=== PATIENT | male | born 1960 | race Caucasian/White ===

== ENCOUNTER 2018-08-30 09:13 | Emergency (ER) | payer BC ==
--- OUTSIDE RECORDS SUMMARY | 2018-08-30 09:39 | XMS REPORT ---
:1960 External Reference #:[id number] Author Organization [facility] Address [address], [address] [place] [address] Phone [phone] Care Team Providers Name Role Phone Elisa Lobo MD Care Team Information Sld Teacher Unavailable Elisa Lobo MD Primary Care Physician Unavailable Payers Type Date Identification Numbers Payment Provider Subscriber Commercial Policy Number: [id number] Jacklyn Mark Webber PayID: [id number] [address] [address] [place] [address] Problems Date Description Provider Status Onset: 01/13/2017 Adult health examination Elisa Lobo M.D. Active Onset: 01/13/2017 Edema Elisa Lobo M.D. Active Onset: 01/13/2017 Essential hypertension Elisa Lobo M.D. Active Onset: 01/13/2017 Rheumatoid arthritis Elisa Lobo M.D. Active Onset: 01/13/2017 Taking medication Elisa Lobo M.D. Active Onset: 01/13/2017 Recurrent major depression in full Elisa Lobo M.D. Active remission Onset: 01/13/2017 Abnormal glucose level Elisa Lobo M.D. Active Onset: 01/13/2017 Immunization Elisa Lobo M.D. Active Onset: 01/13/2017 Encounter for screening for Elisa Lobo M.D. Active nutritional disorder Onset: 01/13/2017 Gout Elisa Lobo M.D. Active Onset: 01/13/2017 Screening for malignant neoplasm of Elisa Lobo M.D. Active prostate Onset: 01/13/2017 Screening for malignant neoplasm of Elisa Lobo M.D. Active colon Onset: 01/13/2017 Hyperlipidemia screening Elisa Lobo M.D. Active Onset: 09/04/2017 Wrist joint pain Elisa Lobo M.D. 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 Active Onset: 11/06/2017 Pain in limb Elisa Lobo M.D. Active Onset: 06/14/2018 Lymphadenopathy Elisa Lobo M.D. 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 ETOH Use About 3 beers per day. Smoking Patient has never smoked Recreational Drug Use Denies Drug Use Daily Caffeine Minimal Caffeine intake. Allergies, Adverse Reactions, Alerts Date Description Reaction Status Severity Comments 01/13/2017 NKDA active Medications Medication Date Status Form Strength Qnty SIG Indications Ordering Provider Vitamin D3 06/14 Active Capsules 5000Unit 1 a day Yamil, Patti Pérez.DViktoriya Amlodipine 02/05 Active Tablets 2.5mg 90tab 1 tab by mouth I10 Yamil, Bes s every day AndJosh pruitt Indomethacin 11/19 Active Capsules 25mg 60cap take 1 tablet Yamil, s by mouth 3 Andras, times daily as M.D. needed for pain Allopurinol 11/06 Active Tablets 100mg 90tab 1 by mouth M10.9 Yamil, s every day AndJosh pruitt Folic Acid 11/06 Active Tablets 1mg 90tab Take 1 Tablet E72.10 Yamil, s By Mouth Every Andras, Day M.D. Fluoxetine HCL 07/24 Active Capsules 20mg 90cap Take 1 Capsule Yamil s By Mouth Every Andras, Day M.D. Naproxen 01/13 Active Tablets 500mg 60tab take [address] s daily when Andras, needed for M.D. arthritis flare up Vitamin B12 Active Tablets 3000mcg 1 by mouth Unknown ER once a day Enalapril Active Tablets 20mg 90tab take 1 tablet Yamil, Male s by mouth every Andras, day M.D. Prednisone Active Tablets 5mg Take 1 Tablet Unknown By Mouth Twice A Day Vitamin D High 06/14 Hx Capsules 2000Unit 1 by mouth Yamil, Potency every day Andras, - M.D. 06/14 Ibuprofen 200 06/14 Hx Tablets 200mg 90tab 1-2 tabs by Yamil, s mouth three Andras, - times a day as M.D. 07/30 needed Vitamin D3 02/05 Hx Capsules 5000Unit 90cap 1 by mouth Yamil, Ultra s every day Andras, - M.D. 06/14 Voltaren 02/05 Hx Gel 1% 200gm 2 gm to be applied on Andras, - right hand M.D. 06/14 transdermally four times a day Vitamin D 11/06 Hx Capsules [id number] 4caps 1 tab by mouth E55.9 Yamil, (Ergocalciferol /2016 once a week Andras, ) - for 4 weeks M.D. 02/05 Voltaren 11/06 Hx Gel 1% 300gm 2 gm to be M79.641 Yamil applied on Andras, - right hand M.D. 06/14 transdermally four times a day Voltaren 1020 Hx Gel 1% 300gm 2 gm to be M25.532 applied on Andras, - left wrist M.D. 09/18 transdermally four times a day Fluoxetine HCL Hx Tablets 20mg 30tab take 1 tablet Yamil, s by mouth once Andras, - daily for M.D. 07/24 Sulfasalazine Hx Tablets 500mg 2 tabs by Unknown /0000 mouth twice a - day 06/16 Humira 00/ Hx PSKT 10mg/0.1M Unknown /0000 L - 07/30 Humira Pen Hx PNKT 40mg/0.8M 80mg every Unknown /0000 L other week - 07/30 Immunizations CPT Code Status Date Vaccine Lot # [id number] Given 01/13/2017 Tdap injection [id number] Vital Signs Date Vital Result Comment 08/27/2018 BP Systolic 154 mmHg BP Diastolic 80 mmHg Body Temperature 97.3 F Heart Rate 70 /min Respiratory Rate 18 /min Weight 259.12 lb O2 % BldC Oximetry 97 % Pain Level 0 08/05/2018 BP Systolic 123 mmHg BP Diastolic 79 mmHg Body Temperature 96.2 F Heart Rate 78 /min Weight 260.38 lb O2 % BldC Oximetry 99 % Pain Level 1 both feet 07/30/2018 BP Systolic 126 mmHg BP Diastolic 80 mmHg Body Temperature 97.3 F Heart Rate 73 /min Weight 257.50 lb O2 % BldC Oximetry 97 % Pain Level 4 both feet. 07/21/2018 BP Systolic Sitting Right Arm 128 mmHg BP Diastolic Sitting Right Arm 82 mmHg Body Temperature 96.6 F Heart Rate 66 /min Respiratory Rate 18 /min Height 69 inches 5'9" Weight 256.00 lb BMI (Body Mass Index) 37.8 kg/m2 BSA (Body Surface Area) 2.29 m2 [place] body weight in kilograms 73 O2 % BldC Oximetry 97 % Ra 06/16/2018 BP Systolic 131 mmHg BP Diastolic 85 mmHg Body Temperature 98.5 F Heart Rate 74 /min Respiratory Rate 18 /min Height 69 inches 5'9" Weight 260.00 lb BMI (Body Mass Index) 38.4 kg/m2 BSA (Body Surface Area) 2.31 m2 [place] body weight in kilograms 73 O2 % BldC Oximetry 97 % Ra Pain Level 0 06/14/2018 BP Systolic 168 mmHg BP Diastolic 97 mmHg Body Temperature 98.1 F Heart Rate 74 /min Respiratory Rate 18 /min Height 69 inches 5'9" Weight 258.00 lb BMI (Body Mass Index) 38.1 kg/m2 BSA (Body Surface Area) 2.30 m2 [place] body weight in kilograms 73 O2 % BldC Oximetry 98 % 02/05/2018 BP Systolic 176 mmHg recheck 143/103 BP Diastolic 100 mmHg recheck 143/103 Heart Rate 87 /min Respiratory Rate 14 /min Height 69 inches 5'9" Weight 258.12 lb BMI (Body Mass Index) 38.1 kg/m2 BSA (Body Surface Area) 2.30 m2 [place] body weight in kilograms 73 O2 % BldC Oximetry 98 % 11/06/2017 BP Systolic Sitting Left Arm 147 mmHg BP Diastolic Sitting Left Arm 87 mmHg Heart Rate 78 /min Respiratory Rate 16 /min Height 69 inches 5'9" Weight 246.00 lb BMI (Body Mass Index) 36.3 kg/m2 BSA (Body Surface Area) 2.26 m2 [place] body weight in kilograms 73 09/04/2017 BP Systolic Sitting Left Arm 153 mmHg BP Diastolic Sitting Left Arm 93 mmHg Heart Rate 81 /min Height 69 inches 5'9" Weight 238.00 lb BMI (Body Mass Index) 35.1 kg/m2 BSA (Body Surface Area) 2.22 m2 [place] body weight in kilograms 73 01/13/2017 BP Systolic 168 mmHg BP Diastolic 82 mmHg Body Temperature 98.5 F Heart Rate 83 /min Respiratory Rate 16 /min Height 69 inches 5'9" Weight 225.25 lb BMI (Body Mass Index) 33.3 kg/m2 BSA (Body Surface Area) 2.17 m2 [place] body weight in kilograms 73 O2 % BldC Oximetry 97 % Results Test Date Test Result H/L Range Note Xray 08/19/2018 Ultrasound Guided Biopsy <pending> Protime 08/06/2018 Protime 13.8 seconds 12.0-14.4 1 Inr 1.1 0.9-1.1 1, 2 Laboratory test finding 08/06/2018 Act Partial Thrombo 33.8 seconds 23.4- 35.0 1 Time Laboratory test finding 07/30/2018 Afp Tumor Marker,Serum <pending> HCG,Beta Subunit,QN,(Serial) <pending> Comprehensive Metabolic Panel 07/30/2018 Glucose 104 mg/dL 74-106 1 BUN 14 mg/dL 7-18 1 Creatinine 1.0 mg/dL 0.6-1.3 1 Glom Filtration Rate, Estimate >60 mL/min >60 1 If >60 mL/min >60 1, 3 BUN/Creat 14.0 ratio 1 Sodium 133 mmol/L Low 136-145 1 Potassium 4.6 mmol/L 3.5-5.1 1 Chloride 100 mmol/L 98-107 1 Carbon Dioxide 26 mmol/L 21-32 1 Anion Gap 7 mEq/L Low 8-16 1 Calcium 9.1 mg/dL 8.5-10.1 1 Total Protein 8.9 g/dL High 6.4-8.2 1 Albumin 3.6 g/dL 3.4-5.0 1 Globulin 5.3 g/dL High 1.9-4.3 1 Alb/Glob 0.7 ratio 1 Bilirubin,Total 0.6 mg/dL 0.2-1.0 1 Sgot/Ast 38 U/L High 15-37 1 SGPT/Alt 43 U/L 12-78 1 Alkaline Phosphatase 76 U/L 45-117 1 Laboratory test finding 07/30/2018 LDH 160 U/L 87-241 1 CBC W/Automated Diff 07/30/2018 White Blood Count 3.6 K/uL 3.4-10.5 1 Red Blood Count 4.73 M/uL 4.20-5.80 1 Hemoglobin 14.1 gm/dL 12.8-17.0 1 Hematocrit 41.3 % 38.0-48.0 1 Mean Cell Volume 87.3 fl 80.0-96.0 1 Mean Corpuscular HGB 29.8 pg 27.0-33.0 1 Mean Corpuscular HGB Conc 34.1 g/dL 31.7-36.0 1 Platelet Count 233 K/uL 155-360 1 Red Cell Distri Width SD 41.2 fl 36-51 1 Red Cell Distri Width %CV 13.2 % 11.6-15.8 1 Mean Platelet Volume 9.2 fL 6.6-10.6 1 Neut% 60.1 % 33.0-73.0 1 Lymph % 23.9 % 20.0-42.0 1 [place] % 8.7 % 0.0-10.0 1 Eo% 5.6 % 0.0-6.6 1 Bas% 1.7 % High 0.0-1.1 1 Neut# 2.13 K/uL 1.8-7.0 1 Lymph # 0.85 K/uL Low 1.0-4.0 1 [place] # 0.31 K/uL 0.0-0.8 1 Eos # 0.20 K/uL 0.0-0.5 1 Baso # 0.06 K/uL 0.0-0.1 1 Rheumatoid Panel ([facility]) 07/30/2018 Sedimentation Rate 60 mm/hr High 0-20 1, 4 Uric Acid 6.5 mg/dL 3.5-7.2 1 Rheumatoid Factor Screen 104.0 IU/mL High 0.0-15.0 1 C-Reactive Protein,Quant 34.8 mg/L High <3.0 1 Lyme AB/Western Blot 07/30/2018 Lyme Total AB/Reflex < 0.91 ISR 0.00- 0.90 1, 5 Reflex To WB Lyme Disease Antibody,QT,Igm < 0.80 index 0.00-0.79 1, 6 Antinuclear Antibodies, Ifa 07/30/2018 Antinuclear Antibodies, Ifa Positive . 1, 7 Homogeneous Pattern 1:80 . 1 Note (SEE NOTE) 1, 8 Systemic Lupus Erythem. Profil 07/30/2018 Ra Latex Turbid. 78.0 IU/mL High 0.0-13.9 1 Anti-Dna Antibody ([place]) <1 IU/mL 0-9 1, 9 SM Antibody <0.2 AI 0.0-0.9 1 CUT OFF MAN Antibody 0.2 AI 0.0-0.9 1 Sjogrens Antibodies (Ssa) <0.2 AI 0.0-0.9 1 Antichromatin Antibodies <0.2 AI 0.0-0.9 1 Sjogrens Antibodies (SSB) <0.2 AI 0.0-0.9 1 Laboratory test finding 07/30/2018 Afp Tumor Marker,Serum 4.6 ng/mL 0.0- 8.3 1, 10 HCG,Beta Subunit,QN,(Serial) <1 mIU/mL 0-3 1, 11 Xray 07/15/2018 Foot Complete 4 Views <pending> Foot, Complete, Left <pending> CT, Abdomen & Pelvis,W & W/O Contrast <pending> CBS W/Automated Diff 07/07/2018 White Blood Count 4.3 K/uL 3.4-10.5 12 Red Blood Count 4.57 M/uL 4.20-5.80 12 Hemoglobin 13.9 gm/dL 12.8-17.0 12 Hematocrit 40.4 % 38.0-48.0 12 Mean Cell Volume 88.4 fl 80.0-96.0 12 Mean Corpuscular HGB 30.4 pg 27.0-33.0 12 Mean Corpuscular HGB Conc 34.4 g/dL 31.7-36.0 12 Platelet Count 237 K/uL 155-360 12 Red Cell Distri Width SD 41.3 fl 36-51 12 Red Cell Distri Width %CV 13.0 % 11.6-15.8 12 Mean Platelet Volume 8.8 fL 6.6-10.6 12 Neut% 63.9 % 33.0-73.0 12 Lymph % 25.6 % 20.0-42.0 12 [place] % 7.9 % 0.0-10.0 12 Eo% 1.9 % 0.0-6.6 12 Bas% 0.7 % 0.0-1.1 12 Neut# 2.75 K/uL 1.8-7.0 12 Lymph # 1.10 K/uL 1.0-4.0 12 [place] # 0.34 K/uL 0.0-0.8 12 Eos # 0.08 K/uL 0.0-0.5 12 Baso # 0.03 K/uL 0.0-0.1 12 Basic Metabolic Panel 07/07/2018 Glucose 108 mg/dL High 74-106 12 BUN 13 mg/dL 7-18 12 Creatinine 1.0 mg/dL 0.6-1.3 12 Glom Filtration Rate, Estimate >60 mL/min >60 12 If >60 mL/min >60 12, 13 BUN/Creat 13.0 ratio 12 Sodium 137 mmol/L 136-145 12 Potassium 4.5 mmol/L 3.5-5.1 12 Chloride 103 mmol/L 98-107 12 Carbon Dioxide 29 mmol/L 21-32 12 Anion Gap 5 mEq/L Low 8-16 12 Calcium 9.0 mg/dL 8.5-10.1 12 Laboratory test finding 07/07/2018 Uric Acid <pending> 12 Vitamin D,25-Hydroxy <pending> 12 Liver Function Tests 07/07/2018 Total Protein 8.2 g/dL 6.4-8.2 12 Albumin 3.4 g/dL 3.4-5.0 12 Globulin 4.8 g/dL High 1.9-4.3 12 Alb/Glob 0.7 ratio 12 Bilirubin,Total 0.6 mg/dL 0.2-1.0 12 Bilirubin,Direct 0.1 mg/dL 0.0-0.2 12 Bilirubin,Indirect 0.5 mg/dL 0.0-0.9 12 Sgot/Ast 28 U/L 15-37 12 SGPT/Alt 36 U/L 12-78 12 Alkaline Phosphatase 70 U/L 45-117 12 Protime 07/07/2018 Protime 13.5 seconds 12.0-14.4 12 Inr 1.0 0.9-1.1 12, 14 Anticoagulant Therapy? NO 12 Act Partial Thrombo 07/07/2018 Act Partial Thrombo 30.6 seconds 23.4- 35.0 12 Time Time Anticoagulant Therapy? NO 12 Homocyst(E)Ine, P/S 01/29/2018 Homocyst(e)ine, P/S 14.1 umol/L 0.0-15.0 15, 16 Comprehensive Metabolic 01/29/2018 Glucose 97 mg/dL 74-106 15 Panel BUN 12 mg/dL 7-18 15 Creatinine 1.1 mg/dL 0.6-1.3 15 Glom Filtration Rate, Estimate >60 mL/min >60 15 If >60 mL/min >60 15, 17 BUN/Creat 10.9 ratio 15 Sodium 139 mmol/L 136-145 15 Potassium 4.5 mmol/L 3.5-5.1 15 Chloride 103 mmol/L 98-107 15 Carbon Dioxide 30 mmol/L 21-32 15 Anion Gap 6 mEq/L Low 8-16 15 Calcium 9.1 mg/dL 8.5-10.1 15 Total Protein 8.1 g/dL 6.4-8.2 15 Albumin 3.6 g/dL 3.4-5.0 15 Globulin 4.5 g/dL High 1.9-4.3 15 Alb/Glob 0.8 ratio 15 Bilirubin,Total 0.9 mg/dL 0.2-1.0 15 Sgot/Ast 25 U/L 15-37 15 SGPT/Alt 19 U/L 12-78 15 Alkaline Phosphatase 71 U/L 45-117 15 CBS W/Automated Diff 01/29/2018 White Blood Count 5.2 K/uL 3.4-10.5 15 Red Blood Count 4.79 M/uL 4.20-5.80 15 Hemoglobin 14.5 gm/dL 12.8-17.0 15 Hematocrit 42.8 % 38.0-48.0 15 Mean Cell Volume 89.4 fl 80.0-96.0 15 Mean Corpuscular HGB 30.3 pg 27.0-33.0 15 Mean Corpuscular HGB Conc 33.9 g/dL 31.7-36.0 15 Platelet Count 250 K/uL 155-360 15 Red Cell Distri Width SD 45.8 fl 36-51 15 Red Cell Distri Width %CV 14.5 % 11.6-15.8 15 Mean Platelet Volume 9.6 fL 6.6-10.6 15 Neut% 62.9 % 33.0-73.0 15 Lymph % 21.4 % 20.0-42.0 15 [place] % 11.3 % High 0.0-10.0 15 Eo% 3.4 % 0.0-6.6 15 Bas% 1.0 % 0.0-1.1 15 Neut# 3.30 K/uL 1.8-7.0 15 Lymph # 1.12 K/uL 1.0-4.0 15 [place] # 0.59 K/uL 0.0-0.8 15 Eos # 0.18 K/uL 0.0-0.5 15 Baso # 0.05 K/uL 0.0-0.1 15 Glycohemoglobin A1c 01/29/2018 Glycohemoglobin (A1c) 5.5 % 4.2-6.3 15, 18 eAG 111 mg/dL 15 Laboratory test finding 01/29/2018 Uric Acid 7.0 mg/dL 3.5-7.2 15 Vitamin D,25-Hydroxy 36.3 ng/mL 30.0-100.0 15, 19 Occult Blood,Stool 11/05/2017 Stool Occult Blood-Single NEGATIVE Negative 20, 21 Spec Occult Blood,Stool 11/04/2017 Stool Occult Blood-Single NEGATIVE Negative 20, 22 Spec Occult Blood,Stool 10/29/2017 Stool Occult Blood-Single NEGATIVE Negative 23, 24 Spec Magnesium 10/27/2017 Magnesium 2.1 mg/dL 1.8-2.4 25 Reflex add FT3? Y 25 Reflex add FT4? Y 25 CBS W/Automated Diff 10/27/2017 White Blood Count 5.0 K/uL 3.4-10.5 25 Red Blood Count 4.59 M/uL 4.20-5.80 25 Hemoglobin 13.6 gm/dL 12.8-17.0 25 Hematocrit 40.6 % 38.0-48.0 25 Mean Cell Volume 88.5 fl 80.0-96.0 25 Mean Corpuscular HGB 29.6 pg 27.0-33.0 25 Mean Corpuscular HGB Conc 33.5 g/dL 31.7-36.0 25 Platelet Count 247 K/uL 155-360 25 Red Cell Distri Width SD 43.2 fl 36-51 25 Red Cell Distri Width %CV 13.7 % 11.6-15.8 25 Mean Platelet Volume 8.5 fL 6.6-10.6 25 Neut% 70.6 % 33.0-73.0 25 Lymph % 17.1 % Low 20.0-42.0 25 [place] % 7.9 % 0.0-10.0 25 Eo% 3.6 % 0.0-6.6 25 Bas% 0.8 % 0.0-1.1 25 Neut# 3.50 K/uL 1.8-7.0 25 Lymph # 0.85 K/uL Low 1.0-4.0 25 [place] # 0.39 K/uL 0.0-0.8 25 Eos # 0.18 K/uL 0.0-0.5 25 Baso # 0.04 K/uL 0.0-0.1 25 Comprehensive Metabolic Panel 10/27/2017 Glucose 110 mg/dL High 74-106 25 BUN 14 mg/dL 7-18 25 Creatinine 1.0 mg/dL 0.6-1.3 25 Glom Filtration Rate, Estimate >60 mL/min >60 25 If >60 mL/min >60 25, 26 BUN/Creat 14.0 ratio 25 Sodium 139 mmol/L 136-145 25 Potassium 4.0 mmol/L 3.5-5.1 25 Chloride 104 mmol/L 98-107 25 Carbon Dioxide 26 mmol/L 21-32 25 Anion Gap 9 mEq/L 8-16 25 Calcium 9.1 mg/dL 8.5-10.1 25 Total Protein 8.2 g/dL 6.4-8.2 25 Albumin 3.4 g/dL 3.4-5.0 25 Globulin 4.8 g/dL High 1.9-4.3 25 Alb/Glob 0.7 ratio 25 Bilirubin,Total 0.8 mg/dL 0.2-1.0 25 Sgot/Ast 28 U/L 15-37 25 SGPT/Alt 24 U/L 12-78 25 Alkaline Phosphatase 74 U/L 45-117 25 Reflex add FT3? Y 25 Reflex add FT4? Y 25 Ua RFX Micro & Culture II 10/27/2017 Urine Color YELLOW Yellow 25 Urine Clarity CLEAR Clear 25 Urine Glucose - Dipstick NEGATIVE mg/dL Negative 25 Urine Bilirubin - Dipstick NEGATIVE Negative 25 Urine Ketone NEGATIVE mg/dL Negative 25 Urine Specific [place] 1.020 1.010-1.030 25 Urine Blood NEGATIVE Negative 25 Urine PH 6.0 Low 6.5-7.5 25 Urine Protein - Dipstick NEGATIVE mg/dL Negative 25 Urine Urobilinogen - Dipstick 0.2 E.U./dL 0.2-1.0 25 Urine Nitrite - Dipstick NEGATIVE Negative 25 Urine Leuk Esterase NEGATIVE Negative 25 Source: URINE, CLEAN CAT <SEE NOTE> 25, 27 Homocyst(E)Ine, P/S 10/27/2017 Homocyst(e)ine, P/S 15.9 umol/L High 0.0- 15.0 25, 28 TSH Reflex FT4 And/Or 10/27/2017 Thyroid Stim Hormone 2.30 uIU/mL 0.30- 4.20 25 FT3 Reflex add FT3? Y 25 Reflex add FT4? Y 25 Glycohemoglobin A1c 10/27/2017 Glycohemoglobin (A1c) 5.8 % 4.2-6.3 25, 29 eAG 120 mg/dL 25 Lupus Anticoagulant Reflex 10/27/2017 PTT-LA 41.6 sec 0.0-51.9 25 DRVVT 32.6 sec 0.0-47.0 25 Note: Comment: . 25, 30 C-Reactive Protein,Quant 10/27/2017 C-Reactive Protein,Quant 17.0 mg/L High <3.0 25 Reflex add FT3? Y 25 Reflex add FT4? Y 25 Lyme AB/Western Blot 10/27/2017 Lyme Total AB/Reflex < 0.91 ISR 0.00- 0.90 25, 31 Reflex To WB Lyme Disease Antibody,QT,Igm < 0.80 index 0.00-0.79 25, 32 Rheumatoid Factor 10/27/2017 Rheumatoid Factor 121.0 IU/mL High 0.0-15.0 25 Screen Screen Reflex add FT3? Y 25 Reflex add FT4? Y 25 Rheumatoid Panel ([facility]) 10/27/2017 Sedimentation Rate 53 mm/hr High 0-20 25, 33 Anti-Nuclear Antibodies Direct Negative AU/mL Negative 25 Laboratory test 10/27/2017 Vitamin D,25-Hydroxy 7.7 ng/mL Low 30.0-100.0 25, 34 finding Triglycerides 10/27/2017 Triglycerides 105 mg/dL <150 25, 35 Reflex add FT3? Y 25 Reflex add FT4? Y 25 Direct LDL Cholesterol 10/27/2017 LDL Chol. (Direct) 119 mg/dL High 0-99 25 HDL Cholesterol 10/27/2017 HDL Cholesterol 79 mg/dL >40 25, 36 Reflex add FT3? Y 25 Reflex add FT4? Y 25 Prostate Specific Antigen 10/27/2017 PSA ([place]) 1.18 ng/mL < 4.0 25, 37 Reflex add FT3? Y 25 Reflex add FT4? Y 25 Uric Acid 10/27/2017 Uric Acid 8.0 mg/dL High 3.5-7.2 25 Reflex add FT3? Y 25 Reflex add FT4? Y 25 1 R59.9 2 THERAPEUTIC INR RANGE: 2.0 - 3.0 DVT, Pulmonary embolus, prophylaxis against venous thrombosis or systemic embolization in high risk patients. 2.5 - 3.5 Mechanical heart valves 3 Note: Persistent reduction for 3 months or more in an eGFR <60 mL/min/1.73 m2 defines CKD. Patients with eGFR values >/=60 mL/min/1.73 m2 may also have CKD if evidence of persistent proteinuria is present. The original MDRD equation for estimated GFR is not valid for patients less than 18 years of age. Additional information may be found at www.kdoqi.org. 4 Method: Sediplast Modified Westergren 5 Negative <0.91 Equivocal 0.91 - 1.09 Positive >1.09 6 Negative <0.80 Equivocal 0.80 - 1.19 Positive >1.19 IgM levels may peak at 3-6 weeks post infection, then gradually decline. Performed at: RN - [facility] [address] [id number] Form Coverer: Nydia Skinner MD, Phone: [phone] 7 Negative <1:80 Borderline 1:80 Positive >1:80 8 A positive SOLEDAD result may occur in healthy individuals (low titer) or be associated with a variety of diseases. See interpretation chart which is not all inclusive: Pattern Antigen Detected Suggested Disease Association Homogeneous DNA(ds,ss), SLE - High titers Nucleosomes, Histones Drug-induced SLE Speckled Sm, CUT OFF MAN, SCL-70, SLE,MCTD,PSS (diffuse form), SS-A/SS-B Sjogrens Nucleolar SCL-70, PM-1/SCL High titers Scleroderma, PM/DM Centromere Centromere PSS (limited form) w/Crest syndrome variable Nuclear Dot [id number] Primary Biliary Cirrhosis Nuclear GP210, Primary Biliary Cirrhosis Membrane jazmine A,B,C 9 Negative <5 Equivocal 5 - 9 Positive >9 10 Normal values apply only to males and to non females. These results are not interpretable for females. Asim ECLIA methodology. Values obtained with different assay methods or kits cannot be used interchangeably. Results cannot be interpreted as absolute evidence of the presence or absence of malignant disease. 11 Asim ECLIA methodology 12 R21 Z79.899 13 Note: Persistent reduction for 3 months or more in an eGFR <60 mL/min/1.73 m2 defines CKD. Patients with eGFR values >/=60 mL/min/1.73 m2 may also have CKD if evidence of persistent proteinuria is present. The original MDRD equation for estimated GFR is not valid for patients less than 18 years of age. Additional information may be found at www.kdoqi.org. 14 THERAPEUTIC INR RANGE: 2.0 - 3.0 DVT, Pulmonary embolus, prophylaxis against venous thrombosis or systemic embolization in high risk patients. 2.5 - 3.5 Mechanical heart valves 15 E72.10 Z79.899 R73.09 M10.9 E55.9 16 Performed at: - [facility] [address] [id number] Form Coverer: Nydia Skinner MD, Phone: [phone] 17 Note: Persistent reduction for 3 months or more in an eGFR <60 mL/min/1.73 m2 defines CKD. Patients with eGFR values >/=60 mL/min/1.73 m2 may also have CKD if evidence of persistent proteinuria is present. The original MDRD equation for estimated GFR is not valid for patients less than 18 years of age. Additional information may be found at www.kdoqi.org. 18 Elevated levels of HbA1c suggest the need for more aggressive treatment of glycemia. The [place] Diabetes Association recommends that a primary goal of therapy should be a HbA1c of <7% and that physicians should re-evaluate the treatment regimen in patients with HbA1c values consistently >8%. 19 Vitamin D deficiency has been defined by the [place] [employer] and an Endocrine Society practice guideline as a level of serum 25-OH vitamin D less than 20 ng/mL (1,2). The Endocrine Society went on to further define vitamin D insufficiency as a level between 21 and 29 ng/mL (2). 1. IOM ([place] [employer]). 2010. Dietary reference intakes for calcium and D. [place]: The National Academies Press. 2. iRcky MF, Gulshan CALDERON, Pako FERNANDEZ, et al. Evaluation, treatment, and prevention of vitamin D deficiency: an Endocrine Society clinical practice guideline. JCEM. 2010; 96(7):1911-30. Performed at: - [facility] [id number] Form Coverer: Nydia Skinner MD, Phone: [phone] 20 Z12.11 21 Method: Alexandra Gary Hemoccult Card 22 Method: Alexandra Gary Hemoccult Card 23 Z13.21,M25.532,Z13.220 24 Method: Alexandra Gary Hemoccult Card 25 I10,Z79.899,F33.42,R73.09,M10.9,Z12.5,Z12.11, 26 Note: Persistent reduction for 3 months or more in an eGFR <60 mL/min/1.73 m2 defines CKD. Patients with eGFR values >/=60 mL/min/1.73 m2 may also have CKD if evidence of persistent proteinuria is present. The original MDRD equation for estimated GFR is not valid for patients less than 18 years of age. Additional information may be found at www.kdoqi.org. 27 URINE, CLEAN CATCH 28 Performed at: [facility] [id number] Form Coverer: Nydia Skinner MD, Phone: [phone] 29 Elevated levels of HbA1c suggest the need for more aggressive treatment of glycemia. The [place] Diabetes Association recommends that a primary goal of therapy should be a HbA1c of <7% and that physicians should re-evaluate the treatment regimen in patients with HbA1c values consistently >8%. 30 No lupus anticoagulant was detected. 31 Negative <0.91 Equivocal 0.91 - 1.09 Positive >1.09 32 Negative <0.80 Equivocal 0.80 - 1.19 Positive >1.19 IgM levels may peak at 3-6 weeks post infection, then gradually decline. Performed at: - [facility] [id number] Form Coverer: Pablo Bedolla MD, Phone: [phone] Performed at: RN - [facility] [address] [id number] Form Coverer: Nydia Skinner MD, Phone: [phone] Method: Sediplast Modified Westergren 34 Vitamin D deficiency has been defined by the [place] [employer] and an Endocrine Society practice guideline as a level of serum 25-OH vitamin D less than 20 ng/mL (1,2). The Endocrine Society went on to further define vitamin D insufficiency as a level between 21 and 29 ng/mL (2). 1. IOM ([place] [employer]). 2010. Dietary reference intakes for calcium and D. [place]: The National Academies Press. 2. Ricky MF, Gulshan CALDERON, Pako FERNANDEZ, et al. Evaluation, treatment, and prevention of vitamin D deficiency: an Endocrine Society clinical practice guideline. JCEM. 2010; 96(7):1911-30. Performed at: RN - [facility] [address] [id number] Form Coverer: Nydia Skinner MD, Phone: [phone] Reference Guidelines*: Normal: ............. < 150 mg/dL Borderline High: .... 150-199 mg/dL High: ............... 200-499 mg/dL Very High: .......... > 500 mg/dL * Source: National Cholesterol Education Program (NCEP) 36 Reference Guidelines*: Low HDL: ..... < 40 mg/dL Normal: ..... 40-60 mg/dL Desirable: ... > 60 mg/dL *The National Cholesterol Education Program(NCEP) 37 THIS ASSAY IS NOT INTENDED A CANCER SCREENING TEST The concentration of PSA in a given specimen, determined with assays from different manufacturers, can vary due to differences in assay methods and reagent specificity. Values obtained from different assay methods cannot be used interchangeably. Method: Siemens Futurlink [place] Chemiluminescent immunoassay. Procedures Date CPT Code Description Status 11/16/2017 Colonoscopy Completed Encounters Type Date Location Provider CPT E/M Dx Office Visit 08/27/2018 9:30a [place] [address] R59.9 M05.60 Office Visit 08/05/2018 9:30[place] [address] R59.9 D64.9 M05.60 Office Visit 07/30/2018 11:00[place] [address] R59.9 D64.9 M05.60 Office Visit 07/21/2018 10:00a Primary Care Office Elisa Lobo M.D. 65166 I10 R59.9 Z79.899 E72.10 R73.09 M06.9 Office Visit 06/16/2018 1:45p Primary Care Office Mulu Pineda, [address] R21 PA Office Visit 06/14/2018 3:40p Primary Care Office Elisa Lobo M.D. 19839 M79.672 M79.671 R59.9 E55.9 M10.9 Z79.899 I10 M06.9 Office Visit 02/05/2018 9:20a Primary Care Office Elisa Lobo M.D. 96233 E55.9 M10.9 Z79.899 E72.10 I10 R60.9 M79.671 M79.672 M06.9 Office Visit 11/06/2017 1:00p Primary Care Office Elisa Lobo M.D. 97378 M10.9 R73.09 F33.42 Z79.899 I10 E72.10 E55.9 M06.9 M79.641 Office Visit 09/04/2017 11:00a Primary Care Office Elisa Lobo M.D. 75729 M10.9 R73.09 F33.42 Z79.899 I10 M25.532 Office Visit 01/13/2017 10:00a Primary Care Office Elisa Lobo M.D. 72543 Z00.01 R60.9 I10 M06.9 Z79.899 F33.42 R73.09 M10.9 Z23 Office Visit 07/26/2008 2:00p Ricky Ni 71339 840.8 Sandy Uribe, Plan of Care Future Appointment(s):11/29/2018 8:30 am - Kenan Lopez DO at Oncology [facility]pnup[facility]8409/22/2018 11:20 am - Elisa Lobo M.D. at Primary Care Office
--- OUTSIDE RECORDS SUMMARY | 2018-08-30 09:40 | XMS REPORT ---
:1960 External Reference #:[id number] Author Organization [facility] Address [address] [place] [address] Phone [phone] Care Team Providers Name Role Phone Elisa Lobo MD Care Team Information Shelving Supervisor Unavailable Elisa Lobo MD Primary Care Physician Unavailable Payers Type Date Identification Numbers Payment Provider Subscriber Commercial Policy Number: [id number] Jacklyn Mark Webber PayID: [id number] [address] [address] [place] [address] Problems Date Description Provider Status Onset: 01/13/2017 [...] Marital Status Single Lives With Alone Occupation [employer] Work Status Currently Working Cigarette Use Patient [...] Active Capsules 20mg 90cap Take 1 Capsule Yamil, s By Mouth Every Andras, Day M.D. Naproxen 01/13 Active Tablets 500mg 60tab take 1 tablet Yamil, s daily when Andras, needed for M.D. arthritis flare up Vitamin B12 Active Tablets 3000mcg 1 by mouth Unknown / ER once a day Enalapril Active Tablets 20mg 90tab take 1 tablet Yamil, Male / s by mouth every Andras, day M.D. Vitamin D High 06/14 Hx Capsules 2000Unit 1 by mouth Yamil, Potency /2017 every day Andras, - M.D. 06/14 Ibuprofen 200 06/14 Hx Tablets 200mg 90tab 1-2 tabs by Yamil, s mouth three Andras, - times a day as M.D. 07/30 Vitamin D3 02/05 Hx Capsules 5000Unit 90cap 1 by mouth Yamil, Ultra s every day Andras, - M.D. 06/14 Voltaren 02/05 Hx Gel 1% 200gm 2 gm to be Yamil, applied on Andras, - right hand M.D. 06/14 transdermally four times a day Vitamin D 11/06 Hx Capsules [id number] 4caps 1 tab by mouth E55.9 Yamil, (Ergocalciferol /2016 once a week Andras, ) - for 4 weeks M.D. 02/05 Voltaren 11/06 Hx Gel 1% 300gm 2 gm to be M79.641 Yamil, applied on Andras, - right hand M.D. 06/14 transdermally four times a day Voltaren 10/20 Hx Gel 1% 300gm 2 gm to be M25.532 Yamil, applied on Andras, - left wrist M.D. 09/18 transdermally four times a day Fluoxetine HCL Hx Tablets 20mg 30tab take 1 tablet Yamil, /0000 s by mouth once Andras, - daily for M.D. 07/24 depression 2017 Sulfasalazine Hx Tablets 500mg 2 tabs by Unknown /0000 mouth twice a - day 06/16 Humira 00/ Hx PSKT 10mg/0.1M Unknown /0000 L - 07/30 Humira Pen 00 Hx PNKT 40mg/0.8M 80mg every Unknown /0000 L other week - 07/30 Immunizations CPT Code Status Date Vaccine Lot # [id number] Given 01/13/2017 Tdap injection [id number] Vital Signs Date Vital Result Comment 08/05/2018 BP Systolic 123 mmHg BP Diastolic [...] kg/m2 BSA (Body Surface Area) 2.29 m2 Mcintyre body weight in kilograms 73 O2 % BldC Oximetry 97 % Ra 06/16/2018 BP Systolic 131 mmHg BP Diastolic 85 mmHg Body Temperature 98.5 F Heart Rate 74 /min Respiratory Rate 18 /min Height 69 inches 5'9" Weight 260.00 lb BMI (Body Mass Index) 38.4 kg/m2 BSA (Body Surface Area) 2.31 m2 Mcintyre body weight in kilograms 73 O2 % BldC Oximetry 97 % Ra Pain Level 0 06/14/2018 BP Systolic 168 mmHg BP Diastolic 97 mmHg Body Temperature 98.1 F Heart Rate 74 /min Respiratory Rate 18 /min Height 69 inches 5'9" Weight 258.00 lb BMI (Body Mass Index) 38.1 kg/m2 BSA (Body Surface Area) 2.30 m2 Mcintyre body weight in kilograms 73 O2 % BldC Oximetry 98 % 02/05/2018 BP Systolic 176 mmHg recheck 143/103 BP Diastolic 100 mmHg recheck 143/103 Heart Rate 87 /min Respiratory Rate 14 /min Height 69 inches 5'9" Weight 258.12 lb BMI (Body Mass Index) 38.1 kg/m2 BSA (Body Surface Area) 2.30 m2 Mcintyre body weight in kilograms 73 O2 % BldC Oximetry 98 % 11/06/2017 BP Systolic Sitting Left Arm 147 mmHg BP Diastolic Sitting Left Arm 87 mmHg Heart Rate 78 /min Respiratory Rate 16 /min Height 69 inches 5'9" Weight 246.00 lb BMI (Body Mass Index) 36.3 kg/m2 BSA (Body Surface Area) 2.26 m2 Mcintyre body weight in kilograms 73 09/04/2017 BP Systolic Sitting Left Arm 153 mmHg BP Diastolic Sitting Left Arm 93 mmHg Heart Rate 81 /min Height 69 inches 5'9" Weight 238.00 lb BMI (Body Mass Index) 35.1 kg/m2 BSA (Body Surface Area) 2.22 m2 Mcintyre body weight in kilograms 73 01/13/2017 BP Systolic 168 mmHg BP Diastolic 82 mmHg Body Temperature 98.5 F Heart Rate 83 /min Respiratory Rate 16 /min Height 69 inches 5'9" Weight 225.25 lb BMI (Body Mass Index) 33.3 kg/m2 BSA (Body Surface Area) 2.17 m2 Mcintyre body weight in kilograms 73 O2 % BldC Oximetry 97 % Results Test Date Test Result H/L Range Note Laboratory test finding 07/30/2018 Afp Tumor Marker,Serum 4.6 ng/mL 0.0- 8.3 1, 2 HCG,Beta Subunit,QN,(Serial) <1 mIU/mL 0-3 1, 3 Systemic Lupus Erythem. Profil 07/30/2018 Ra Latex Turbid. 78.0 IU/mL High 0.0-13.9 1 Anti-Dna Antibody (Jackson) <1 IU/mL 0-9 1, 4 SM Antibody <0.2 AI 0.0-0.9 1 FIELD SUPPORT REP Antibody 0.2 AI 0.0-0.9 1 Sjogrens Antibodies [...] >60 1 If >60 mL/min >60 1, 5 BUN/Creat 14.0 ratio 1 Sodium 133 mmol/L [...] 1 Lymph % 23.9 % 20.0-42.0 1 Lake % 8.7 % 0.0-10.0 1 Eo% 5.6 % 0.0-6.6 1 Bas% 1.7 % High 0.0-1.1 1 Neut# 2.13 K/uL 1.8-7.0 1 Lymph # 0.85 K/uL Low 1.0-4.0 1 Lake # 0.31 K/uL 0.0-0.8 1 Eos # 0.20 K/uL 0.0-0.5 1 Baso # 0.06 K/uL 0.0-0.1 1 Antinuclear Antibodies, Ifa 07/30/2018 Antinuclear Antibodies, Ifa Positive . 1, 6 Homogeneous Pattern 1:80 . 1 Note (SEE NOTE) 1, 7 Lyme AB/Western Blot 07/30/2018 Lyme Total AB/Reflex < 0.91 ISR 0.00- 0.90 1, 8 Reflex To WB Lyme Disease Antibody,QT,Igm < 0.80 index 0.00-0.79 1, 9 Rheumatoid Panel ([facility]) 07/30/2018 Sedimentation Rate 60 mm/hr High 0-20 1, 10 Uric Acid 6.5 mg/dL 3.5-7.2 1 Rheumatoid Factor Screen 104.0 IU/mL High 0.0-15.0 1 C-Reactive Protein,Quant 34.8 mg/L High <3.0 1 Xray 07/15/2018 Foot Complete 4 Views <pending> Foot, Complete, Left <pending> CT, Abdomen & Pelvis,W & W/O Contrast <pending> CBS W/Automated Diff 07/07/2018 White Blood Count 4.3 K/uL 3.4-10.5 11 Red Blood Count 4.57 M/uL 4.20-5.80 11 Hemoglobin 13.9 gm/dL 12.8-17.0 11 Hematocrit 40.4 % 38.0-48.0 11 Mean Cell Volume 88.4 fl 80.0-96.0 11 Mean Corpuscular HGB 30.4 pg 27.0-33.0 11 Mean Corpuscular HGB Conc 34.4 g/dL 31.7-36.0 11 Platelet Count 237 K/uL 155-360 11 Red Cell Distri Width SD 41.3 fl 36-51 11 Red Cell Distri Width %CV 13.0 % 11.6-15.8 11 Mean Platelet Volume 8.8 fL 6.6-10.6 11 Neut% 63.9 % 33.0-73.0 11 Lymph % 25.6 % 20.0-42.0 11 Lake % 7.9 % 0.0-10.0 11 Eo% 1.9 % 0.0-6.6 11 Bas% 0.7 % 0.0-1.1 11 Neut# 2.75 K/uL 1.8-7.0 11 Lymph # 1.10 K/uL 1.0-4.0 11 Lake # 0.34 K/uL 0.0-0.8 11 Eos # 0.08 K/uL 0.0-0.5 11 Baso # 0.03 K/uL 0.0-0.1 11 Basic Metabolic Panel 07/07/2018 Glucose 108 mg/dL High 74-106 11 BUN 13 mg/dL 7-18 11 Creatinine 1.0 mg/dL 0.6-1.3 11 Glom Filtration Rate, Estimate >60 mL/min >60 11 If >60 mL/min >60 11, 12 BUN/Creat 13.0 ratio 11 Sodium 137 mmol/L 136-145 11 Potassium 4.5 mmol/L 3.5-5.1 11 Chloride 103 mmol/L 98-107 11 Carbon Dioxide 29 mmol/L 21-32 11 Anion Gap 5 mEq/L Low 8-16 11 Calcium 9.0 mg/dL 8.5-10.1 11 Laboratory test finding 07/07/2018 Uric Acid <pending> 11 Vitamin D,25-Hydroxy <pending> 11 Liver Function Tests 07/07/2018 Total Protein 8.2 g/dL 6.4-8.2 11 Albumin 3.4 g/dL 3.4-5.0 11 Globulin 4.8 g/dL High 1.9-4.3 11 Alb/Glob 0.7 ratio 11 Bilirubin,Total 0.6 mg/dL 0.2-1.0 11 Bilirubin,Direct 0.1 mg/dL 0.0-0.2 11 Bilirubin,Indirect 0.5 mg/dL 0.0-0.9 11 Sgot/Ast 28 U/L 15-37 11 SGPT/Alt 36 U/L 12-78 11 Alkaline Phosphatase 70 U/L 45-117 11 Protime 07/07/2018 Protime 13.5 seconds 12.0-14.4 11 Inr 1.0 0.9-1.1 11, 13 Anticoagulant Therapy? NO 11 Act Partial Thrombo 07/07/2018 Act Partial Thrombo 30.6 seconds 23.4- 35.0 11 Time Time Anticoagulant Therapy? NO 11 Homocyst(E)Ine, P/S 01/29/2018 Homocyst(e)ine, P/S 14.1 umol/L 0.0-15.0 14, 15 Comprehensive Metabolic 01/29/2018 Glucose 97 mg/dL 74-106 14 Panel BUN 12 mg/dL 7-18 14 Creatinine 1.1 mg/dL 0.6-1.3 14 Glom Filtration Rate, Estimate >60 mL/min >60 14 If >60 mL/min >60 14, 16 BUN/Creat 10.9 ratio 14 Sodium 139 mmol/L 136-145 14 Potassium 4.5 mmol/L 3.5-5.1 14 Chloride 103 mmol/L 98-107 14 Carbon Dioxide 30 mmol/L 21-32 14 Anion Gap 6 mEq/L Low 8-16 14 Calcium 9.1 mg/dL 8.5-10.1 14 Total Protein 8.1 g/dL 6.4-8.2 14 Albumin 3.6 g/dL 3.4-5.0 14 Globulin 4.5 g/dL High 1.9-4.3 14 Alb/Glob 0.8 ratio 14 Bilirubin,Total 0.9 mg/dL 0.2-1.0 14 Sgot/Ast 25 U/L 15-37 14 SGPT/Alt 19 U/L 12-78 14 Alkaline Phosphatase 71 U/L 45-117 14 CBS W/Automated Diff 01/29/2018 White Blood Count 5.2 K/uL 3.4-10.5 14 Red Blood Count 4.79 M/uL 4.20-5.80 14 Hemoglobin 14.5 gm/dL 12.8-17.0 14 Hematocrit 42.8 % 38.0-48.0 14 Mean Cell Volume 89.4 fl 80.0-96.0 14 Mean Corpuscular HGB 30.3 pg 27.0-33.0 14 Mean Corpuscular HGB Conc 33.9 g/dL 31.7-36.0 14 Platelet Count 250 K/uL 155-360 14 Red Cell Distri Width SD 45.8 fl 36-51 14 Red Cell Distri Width %CV 14.5 % 11.6-15.8 14 Mean Platelet Volume 9.6 fL 6.6-10.6 14 Neut% 62.9 % 33.0-73.0 14 Lymph % 21.4 % 20.0-42.0 14 Lake % 11.3 % High 0.0-10.0 14 Eo% 3.4 % 0.0-6.6 14 Bas% 1.0 % 0.0-1.1 14 Neut# 3.30 K/uL 1.8-7.0 14 Lymph # 1.12 K/uL 1.0-4.0 14 Lake # 0.59 K/uL 0.0-0.8 14 Eos # 0.18 K/uL 0.0-0.5 14 Baso # 0.05 K/uL 0.0-0.1 14 Glycohemoglobin A1c 01/29/2018 Glycohemoglobin (A1c) 5.5 % 4.2-6.3 14, 17 eAG 111 mg/dL 14 Laboratory test finding 01/29/2018 Uric Acid 7.0 mg/dL 3.5-7.2 14 Vitamin D,25-Hydroxy 36.3 ng/mL 30.0-100.0 14, 18 Occult Blood,Stool 11/05/2017 Stool Occult Blood-Single NEGATIVE Negative 19, 20 Spec Occult Blood,Stool 11/04/2017 Stool Occult Blood-Single NEGATIVE Negative 19, 21 Spec Occult Blood,Stool 10/29/2017 Stool Occult Blood-Single NEGATIVE Negative 22, 23 Spec Magnesium 10/27/2017 Magnesium 2.1 mg/dL 1.8-2.4 24 Reflex add FT3? Y 24 Reflex add FT4? Y 24 CBS W/Automated Diff 10/27/2017 White Blood Count 5.0 K/uL 3.4-10.5 24 Red Blood Count 4.59 M/uL 4.20-5.80 24 Hemoglobin 13.6 gm/dL 12.8-17.0 24 Hematocrit 40.6 % 38.0-48.0 24 Mean Cell Volume 88.5 fl 80.0-96.0 24 Mean Corpuscular HGB 29.6 pg 27.0-33.0 24 Mean Corpuscular HGB Conc 33.5 g/dL 31.7-36.0 24 Platelet Count 247 K/uL 155-360 24 Red Cell Distri Width SD 43.2 fl 36-51 24 Red Cell Distri Width %CV 13.7 % 11.6-15.8 24 Mean Platelet Volume 8.5 fL 6.6-10.6 24 Neut% 70.6 % 33.0-73.0 24 Lymph % 17.1 % Low 20.0-42.0 24 Lake % 7.9 % 0.0-10.0 24 Eo% 3.6 % 0.0-6.6 24 Bas% 0.8 % 0.0-1.1 24 Neut# 3.50 K/uL 1.8-7.0 24 Lymph # 0.85 K/uL Low 1.0-4.0 24 Lake # 0.39 K/uL 0.0-0.8 24 Eos # 0.18 K/uL 0.0-0.5 24 Baso # 0.04 K/uL 0.0-0.1 24 Comprehensive Metabolic Panel 10/27/2017 Glucose 110 mg/dL High 74-106 24 BUN 14 mg/dL 7-18 24 Creatinine 1.0 mg/dL 0.6-1.3 24 Glom Filtration Rate, Estimate >60 mL/min >60 24 If >60 mL/min >60 24, 25 BUN/Creat 14.0 ratio 24 Sodium 139 mmol/L 136-145 24 Potassium 4.0 mmol/L 3.5-5.1 24 Chloride 104 mmol/L 98-107 24 Carbon Dioxide 26 mmol/L 21-32 24 Anion Gap 9 mEq/L 8-16 24 Calcium 9.1 mg/dL 8.5-10.1 24 Total Protein 8.2 g/dL 6.4-8.2 24 Albumin 3.4 g/dL 3.4-5.0 24 Globulin 4.8 g/dL High 1.9-4.3 24 Alb/Glob 0.7 ratio 24 Bilirubin,Total 0.8 mg/dL 0.2-1.0 24 Sgot/Ast 28 U/L 15-37 24 SGPT/Alt 24 U/L 12-78 24 Alkaline Phosphatase 74 U/L 45-117 24 Reflex add FT3? Y 24 Reflex add FT4? Y 24 Ua RFX Micro & Culture II 10/27/2017 Urine Color YELLOW Yellow 24 Urine Clarity CLEAR Clear 24 Urine Glucose - Dipstick NEGATIVE mg/dL Negative 24 Urine Bilirubin - Dipstick NEGATIVE Negative 24 Urine Ketone NEGATIVE mg/dL Negative 24 Urine Specific [place] 1.020 1.010-1.030 24 Urine Blood NEGATIVE Negative 24 Urine PH 6.0 Low 6.5-7.5 24 Urine Protein - Dipstick NEGATIVE mg/dL Negative 24 Urine Urobilinogen - Dipstick 0.2 E.U./dL 0.2-1.0 24 Urine Nitrite - Dipstick NEGATIVE Negative 24 Urine Leuk Esterase NEGATIVE Negative 24 Source: URINE, CLEAN CAT <SEE NOTE> 24, 26 Homocyst(E)Ine, P/S 10/27/2017 Homocyst(e)ine, P/S 15.9 umol/L High 0.0- 15.0 24, 27 TSH Reflex FT4 And/Or 10/27/2017 Thyroid Stim Hormone 2.30 uIU/mL 0.30- 4.20 24 FT3 Reflex add FT3? Y 24 Reflex add FT4? Y 24 Lupus Anticoagulant Reflex 10/27/2017 PTT-LA 41.6 sec 0.0-51.9 24 DRVVT 32.6 sec 0.0-47.0 24 Note: Comment: . 24, 28 C-Reactive Protein,Quant 10/27/2017 C-Reactive Protein,Quant 17.0 mg/L High <3.0 24 Reflex add FT3? Y 24 Reflex add FT4? Y 24 Lyme AB/Western Blot 10/27/2017 Lyme Total AB/Reflex < 0.91 ISR 0.00- 0.90 24, 29 Reflex To WB Lyme Disease Antibody,QT,Igm < 0.80 index 0.00-0.79 24, 30 Rheumatoid Factor 10/27/2017 Rheumatoid Factor 121.0 IU/mL High 0.0-15.0 24 Screen Screen Reflex add FT3? Y 24 Reflex add FT4? Y 24 Rheumatoid Panel ([facility]) 10/27/2017 Sedimentation Rate 53 mm/hr High 0-20 24, 31 Anti-Nuclear Antibodies Direct Negative AU/mL Negative 24 Laboratory test 10/27/2017 Vitamin D,25-Hydroxy 7.7 ng/mL Low 30.0-100.0 24, 32 finding Triglycerides 10/27/2017 Triglycerides 105 mg/dL <150 24, 33 Reflex add FT3? Y 24 Reflex add FT4? Y 24 Direct LDL Cholesterol 10/27/2017 LDL Chol. (Direct) 119 mg/dL High 0-99 24 HDL Cholesterol 10/27/2017 HDL Cholesterol 79 mg/dL >40 24, 34 Reflex add FT3? Y 24 Reflex add FT4? Y 24 Prostate Specific Antigen 10/27/2017 PSA ([place] Loci) 1.18 ng/mL < 4.0 24, 35 Reflex add FT3? Y 24 Reflex add FT4? Y 24 Uric Acid 10/27/2017 Uric Acid 8.0 mg/dL High 3.5-7.2 24 Reflex add FT3? Y 24 Reflex add FT4? Y 24 Glycohemoglobin A1c 10/27/2017 Glycohemoglobin (A1c) 5.8 % 4.2-6.3 24, 36 eAG 120 mg/dL 24 1 R59.9 2 Normal values apply only to males and to non females. These results are not interpretable for females. Asim ECLIA methodology. Values obtained with different assay methods or kits cannot be used interchangeably. Results cannot be interpreted as absolute evidence of the presence or absence of malignant disease. 3 Asim ECLIA methodology 4 Negative <5 Equivocal 5 - 9 Positive >9 5 Note: Persistent reduction for 3 months or more in an eGFR <60 mL/min/1.73 m2 defines CKD. Patients with eGFR values >/=60 mL/min/1.73 m2 may also have CKD if evidence of persistent proteinuria is present. The original MDRD equation for estimated GFR is not valid for patients less than 18 years of age. Additional information may be found at www.kdoqi.org. 6 Negative <1:80 Borderline 1:80 Positive >1:80 7 A positive SOLEDAD result may occur in healthy individuals (low titer) or be associated with a variety of diseases. See interpretation chart which is not all inclusive: Pattern Antigen Detected Suggested Disease Association Homogeneous DNA(ds,ss), SLE - High titers Nucleosomes, Histones Drug-induced SLE Speckled Sm, FIELD SUPPORT REP, SCL-70, SLE,MCTD,PSS (diffuse form), SS-A/SS-B Sjogrens Nucleolar SCL-70, PM-1/SCL High titers Scleroderma, PM/DM Centromere Centromere PSS (limited form) w/Crest syndrome variable Nuclear Dot Sp100,a95-tlrdaz Primary Biliary Cirrhosis Nuclear GP210, Primary Biliary Cirrhosis Membrane jazmine A,B,C 8 Negative <0.91 Equivocal 0.91 - 1.09 Positive >1.09 9 Negative <0.80 Equivocal 0.80 - 1.19 Positive >1.19 IgM levels may peak at 3-6 weeks post infection, then gradually decline. Performed at: RN - [facility] [address], [place], [place] [id number] Behavioral Scientist: Nydia Skinner MD, Phone: [phone] Method: Sediplast Modified [place] 11 R21 D90.866 12 Note: Persistent reduction for 3 months or more in an eGFR <60 mL/min/1.73 m2 defines CKD. Patients with eGFR values >/=60 mL/min/1.73 m2 may also have CKD if evidence of persistent proteinuria is present. The original MDRD equation for estimated GFR is not valid for patients less than 18 years of age. Additional information may be found at www.kdoqi.org. 13 THERAPEUTIC INR RANGE: 2.0 - 3.0 DVT, Pulmonary embolus, prophylaxis against venous thrombosis or systemic embolization in high risk patients. 2.5 - 3.5 Mechanical heart valves 14 E72.10 Z79.899 R73.09 M10.9 E55.9 15 Performed at: [facility] [address] [id number] Behavioral Scientist: Nydia Skinner MD, Phone: [phone] 16 Note: Persistent reduction for 3 months or more in an eGFR <60 mL/min/1.73 m2 defines CKD. Patients with eGFR values >/=60 mL/min/1.73 m2 may also have CKD if evidence of persistent proteinuria is present. The original MDRD equation for estimated GFR is not valid for patients less than 18 years of age. Additional information may be found at www.kdoqi.org. 17 Elevated levels of HbA1c suggest the need for more aggressive treatment of glycemia. The [place] Diabetes Association recommends that a primary goal of therapy should be a HbA1c of <7% and that physicians should re-evaluate the treatment regimen in patients with HbA1c values consistently >8%. 18 Vitamin D deficiency has been defined by [...] National Academies Press. 2. Ricky MF, Gulshan NC, Pako FERNANDEZ, et al. Evaluation, treatment, and prevention of vitamin D deficiency: an Endocrine Society clinical practice guideline. JCEM. 2010; 96(7):1911-30. Performed at: [facility] [address] [id number] Behavioral Scientist: Nydia Skinner MD, Phone: [phone] 19 Z12.11 20 Method: Alexandra [place] Hemoccult Card 21 Method: Alexandra Raffstar Hemoccult Card 22 Z13.21,M25.532,Z13.220 23 Method: Alexandra Perla Hemoccult Card 24 I10,Z79.899,F33.42,R73.09,M10.9,Z12.5,Z12.11, 25 Note: Persistent reduction for 3 months or more in an eGFR <60 mL/min/1.73 m2 defines CKD. Patients with eGFR values >/=60 mL/min/1.73 m2 may also have CKD if evidence of persistent proteinuria is present. The original MDRD equation for estimated GFR is not valid for patients less than 18 years of age. Additional information may be found at www.kdoqi.org. 26 URINE, CLEAN CATCH 27 Performed at: [address] [id number] Behavioral Scientist: Nydia Skinner MD, Phone: [phone] 28 No lupus anticoagulant was detected. 29 Negative <0.91 Equivocal 0.91 - 1.09 Positive >1.09 30 Negative <0.80 Equivocal 0.80 - 1.19 Positive >1.19 IgM levels may peak at 3-6 weeks post infection, then gradually decline. Performed at: [address] [id number] Behavioral Scientist: Pablo Bedolla MD, Phone: [phone] Performed at: [address] [id number] Behavioral Scientist: Nydia Skinner MD, Phone: [phone] 31 Method: Sediplast Modified [place] 32 Vitamin D deficiency has been defined by [...] [place]: The National Academies Press. 2. Ricky ARDON, Gulshan CALDERON, Pako FERNANDEZ, et al. Evaluation, treatment, and prevention of vitamin D deficiency: an Endocrine Society clinical practice guideline. JCEM. 2010; 96(7):1911-30. Performed at: RN - [address] [id number] Behavioral Scientist: Nydia Skinner MD, Phone: [phone] 33 Reference Guidelines*: Normal: ............. < 150 mg/dL Borderline High: .... 150-199 mg/dL High: ............... 200-499 mg/dL Very High: .......... > 500 mg/dL * Source: National Cholesterol Education Program (NCEP) 34 Reference Guidelines*: Low HDL: ..... < 40 mg/dL Normal: ..... 40-60 mg/dL Desirable: ... > 60 mg/dL *The National Cholesterol Education Program(NCEP) 35 THIS ASSAY IS NOT INTENDED A CANCER SCREENING TEST The concentration of PSA in a given specimen, determined with assays from different manufacturers, can vary due to differences in assay methods and reagent specificity. Values obtained from different assay methods cannot be used interchangeably. Method: Sensdatata Chemiluminescent immunoassay. 36 Elevated levels of HbA1c suggest the need for more aggressive treatment of glycemia. The [place] Diabetes Association recommends that a primary goal of therapy should be a HbA1c of <7% and that physicians should re-evaluate the treatment regimen in patients with HbA1c values consistently >8%. Procedures Date CPT Code Description Status 11/16/2017 Colonoscopy Completed Encounters Type Date Location Provider CPT E/M Dx Office Visit 07/30/2018 11:00a [place] [address] R59.9 D64.9 M05.60 Office Visit 06/16/2018 1:45p Primary Care Office Mulu Pineda, [address] R21 PA Office Visit 06/14/2018 3:40p Primary Care Office Elisa Lobo M.D. 56671 M79.672 M79.671 R59.9 E55.9 M10.9 Z79.899 I10 M06.9 Office Visit 02/05/2018 9:20a Primary Care Office Elisa Lobo M.D. 79832 E55.9 M10.9 Z79.899 E72.10 I10 R60.9 M79.671 M79.672 M06.9 Office Visit 11/06/2017 1:00p Primary Care Office Elisa Lobo M.D. 24938 M10.9 R73.09 F33.42 Z79.899 I10 E72.10 E55.9 M06.9 M79.641 Office Visit 09/04/2017 11:00a Primary Care Office Elisa Lobo M.D. 02173 M10.9 R73.09 F33.42 Z79.899 I10 M25.532 Office Visit 01/13/2017 10:00a Primary Care Office Elisa Lobo M.D. 39568 Z00.01 R60.9 I10 M06.9 Z79.899 F33.42 R73.09 M10.9 Z23 Office Visit 07/26/2008 2:00p [place] 80250 840.8 Sandy Uribe HViktoriya, DO Plan of Care Future Appointment(s):09/22/2018 11:20 am - Elisa Lobo M.D. at Primary Care Office
--- OUTSIDE RECORDS SUMMARY | 2018-08-30 09:40 | XMS REPORT ---
:1960 External Reference #:[id number] Author Organization [facility] Address [address] [place] [address] Phone [phone] Care Team Providers Name Role Phone Elisa Lobo MD Care Team Information Wood Technologist Unavailable Elisa Lobo MD Primary Care Physician Unavailable Payers Type Date Identification Numbers Payment Provider Subscriber Commercial Policy Number: [id number] Jacklyn Mark Webber PayID: [id number] [address] [address] [place] [address] Problems Date Description Provider Status Onset: 01/13/2017 Adult health examination Elisa Lobo M.D. Active Onset: 01/13/2017 Edema Elisa Lobo M.D. Active Onset: 01/13/2017 Essential hypertension Elisa Lobo M.D. Active Onset: 01/13/2017 Rheumatoid arthritis Elisa Lobo M.D. Active Onset: 01/13/2017 Taking medication Elisa Loob M.D. Active Onset: 01/13/2017 Recurrent major depression [...] Marital Status Single Lives With Alone Occupation [employer] Work Status Currently Working Cigarette Use Patient [...] a day Vitamin D 11/06 Hx Capsules [id number] 4caps 1 tab by mouth E55.9 Yamil, [...] CPT Code Status Date Vaccine Lot # [id number] Given 01/13/2017 Tdap injection [id number] Vital Signs [...] kg/m2 BSA (Body Surface Area) 2.29 m2 [place] body weight in kilograms 73 O2 % BldC Oximetry 97 % Ra 06/16/2018 BP Systolic 131 mmHg BP Diastolic 85 mmHg Body Temperature 98.5 F Heart Rate 74 /min Respiratory Rate 18 /min Height 69 inches 5'9" Weight 260.00 lb BMI (Body Mass Index) 38.4 kg/m2 BSA (Body Surface Area) 2.31 m2 [place] body weight in kilograms 73 O2 % BldC Oximetry 97 % Ra Pain Level 0 06/14/2018 BP Systolic 168 mmHg BP Diastolic 97 mmHg Body Temperature 98.1 F Heart Rate 74 /min Respiratory Rate 18 /min Height 69 inches 5'9" Weight 258.00 lb BMI (Body Mass Index) 38.1 kg/m2 BSA (Body Surface Area) 2.30 m2 [place] body weight in kilograms 73 O2 % BldC Oximetry 98 % 02/05/2018 BP Systolic 176 mmHg recheck 143/103 BP Diastolic 100 mmHg recheck 143/103 Heart Rate 87 /min Respiratory Rate 14 /min Height 69 inches 5'9" Weight 258.12 lb BMI (Body Mass Index) 38.1 kg/m2 BSA (Body Surface Area) 2.30 m2 [place] body weight in kilograms 73 O2 % BldC Oximetry 98 % 11/06/2017 BP Systolic Sitting Left Arm 147 mmHg BP Diastolic Sitting Left Arm 87 mmHg Heart Rate 78 /min Respiratory Rate 16 /min Height 69 inches 5'9" Weight 246.00 lb BMI (Body Mass Index) 36.3 kg/m2 BSA (Body Surface Area) 2.26 m2 [place] body weight in kilograms 73 09/04/2017 BP Systolic Sitting Left Arm 153 mmHg BP Diastolic Sitting Left Arm 93 mmHg Heart Rate 81 /min Height 69 inches 5'9" Weight 238.00 lb BMI (Body Mass Index) 35.1 kg/m2 BSA (Body Surface Area) 2.22 m2 [place] body weight in kilograms 73 01/13/2017 BP Systolic 168 mmHg BP Diastolic 82 mmHg Body Temperature 98.5 F Heart Rate 83 /min Respiratory Rate 16 /min Height 69 inches 5'9" Weight 225.25 lb BMI (Body Mass Index) 33.3 kg/m2 BSA (Body Surface Area) 2.17 m2 [place] body weight in kilograms 73 O2 % BldC Oximetry 97 % Results Test Date Test Result H/L Range Note Protime 08/06/2018 Protime 13.8 seconds 12.0-14.4 1 Inr 1.1 0.9-1.1 1, 2 Laboratory test finding 08/06/2018 Act Partial Thrombo 33.8 seconds 23.4- 35.0 1 Time Laboratory test finding 07/30/2018 Afp Tumor Marker,Serum <pending> HCG,Beta Subunit,QN,(Serial) <pending> Laboratory test finding 07/30/2018 Afp Tumor Marker,Serum 4.6 ng/mL 0.0- 8.3 1, 3 HCG,Beta Subunit,QN,(Serial) <1 mIU/mL 0-3 1, 4 Systemic Lupus Erythem. Profil 07/30/2018 Ra Latex Turbid. 78.0 IU/mL High 0.0-13.9 1 Anti-Dna Antibody ([place]) <1 IU/mL 0-9 1, 5 SM Antibody <0.2 AI 0.0-0.9 1 PHYSICAL THERAPY ASST Antibody 0.2 AI 0.0-0.9 1 Sjogrens Antibodies (Ssa) <0.2 AI 0.0-0.9 1 Antichromatin Antibodies <0.2 AI 0.0-0.9 1 Sjogrens Antibodies (SSB) <0.2 AI 0.0-0.9 1 Comprehensive Metabolic Panel 07/30/2018 Glucose 104 mg/dL 74-106 1 BUN 14 mg/dL 7-18 1 Creatinine 1.0 mg/dL 0.6-1.3 1 Glom Filtration Rate, Estimate >60 mL/min >60 1 If >60 mL/min >60 1, 6 BUN/Creat 14.0 ratio 1 Sodium 133 mmol/L [...] 1 Lymph % 23.9 % 20.0-42.0 1 [place] % 8.7 % 0.0-10.0 1 Eo% 5.6 % 0.0-6.6 1 Bas% 1.7 % High 0.0-1.1 1 Neut# 2.13 K/uL 1.8-7.0 1 Lymph # 0.85 K/uL Low 1.0-4.0 1 [place] # 0.31 K/uL 0.0-0.8 1 Eos # 0.20 K/uL 0.0-0.5 1 Baso # 0.06 K/uL 0.0-0.1 1 Antinuclear Antibodies, Ifa 07/30/2018 Antinuclear Antibodies, Ifa Positive . 1, 7 Homogeneous Pattern 1:80 . 1 Note (SEE NOTE) 1, 8 Lyme AB/Western Blot 07/30/2018 Lyme Total AB/Reflex < 0.91 ISR 0.00- 0.90 1, 9 Reflex To WB Lyme Disease Antibody,QT,Igm < 0.80 index 0.00-0.79 1, 10 Rheumatoid Panel ([facility]) 07/30/2018 Sedimentation Rate 60 mm/hr High 0-20 1, 11 Uric Acid 6.5 mg/dL 3.5-7.2 1 Rheumatoid Factor Screen 104.0 IU/mL High 0.0-15.0 1 C-Reactive Protein,Quant 34.8 mg/L High <3.0 1 Xray 07/15/2018 Foot Complete 4 Views <pending> Foot, Complete, Left <pending> CT, Abdomen & Pelvis,W & W/O Contrast <pending> Act Partial Thrombo 07/07/2018 Act Partial Thrombo 30.6 seconds 23.4- 35.0 12 Time Time Anticoagulant Therapy? NO 12 CBS W/Automated Diff 07/07/2018 White Blood Count [...] 12 Lymph % 25.6 % 20.0-42.0 12 [place] % 7.9 % 0.0-10.0 12 Eo% 1.9 % 0.0-6.6 12 Bas% 0.7 % 0.0-1.1 12 Neut# 2.75 K/uL 1.8-7.0 12 Lymph # 1.10 K/uL 1.0-4.0 12 [place] # 0.34 K/uL 0.0-0.8 12 Eos # [...] 0.9-1.1 12, 14 Anticoagulant Therapy? NO 12 Homocyst(E)Ine, P/S 01/29/2018 [...] 15 Lymph % 21.4 % 20.0-42.0 15 [place] % 11.3 % High 0.0-10.0 15 Eo% 3.4 % 0.0-6.6 15 Bas% 1.0 % 0.0-1.1 15 Neut# 3.30 K/uL 1.8-7.0 15 Lymph # 1.12 K/uL 1.0-4.0 15 [place] # 0.59 K/uL 0.0-0.8 15 Eos # [...] Y 25 Reflex add FT4? Y 25 Lupus Anticoagulant Reflex 10/27/2017 PTT-LA 41.6 sec 0.0-51.9 25 DRVVT 32.6 sec 0.0-47.0 25 Note: Comment: . 25, 26 C-Reactive Protein,Quant 10/27/2017 C-Reactive Protein,Quant 17.0 mg/L High <3.0 25 Reflex add FT3? Y 25 Reflex add FT4? Y 25 Lyme AB/Western Blot 10/27/2017 Lyme Total AB/Reflex < 0.91 ISR 0.00- 0.90 25, 27 Reflex To WB Lyme Disease Antibody,QT,Igm < 0.80 index 0.00-0.79 25, 28 Rheumatoid Factor 10/27/2017 Rheumatoid Factor 121.0 IU/mL High 0.0-15.0 25 Screen Screen Reflex add FT3? Y 25 Reflex add FT4? Y 25 Rheumatoid Panel ([facility]) 10/27/2017 Sedimentation Rate 53 mm/hr High 0-20 25, 29 Anti-Nuclear Antibodies Direct Negative AU/mL Negative 25 Laboratory test 10/27/2017 Vitamin D,25-Hydroxy 7.7 ng/mL Low 30.0-100.0 25, 30 finding Triglycerides 10/27/2017 Triglycerides 105 mg/dL <150 25, 31 Reflex add FT3? Y 25 Reflex add FT4? Y 25 Direct LDL Cholesterol 10/27/2017 LDL Chol. (Direct) 119 mg/dL High 0-99 25 HDL Cholesterol 10/27/2017 HDL Cholesterol 79 mg/dL >40 25, 32 Reflex add FT3? Y 25 Reflex add FT4? Y 25 Prostate Specific Antigen 10/27/2017 PSA ([place]) 1.18 ng/mL < 4.0 25, 33 Reflex add FT3? Y 25 Reflex add FT4? Y 25 Uric Acid 10/27/2017 Uric Acid 8.0 mg/dL High 3.5-7.2 25 Reflex add FT3? Y 25 Reflex add FT4? Y 25 Glycohemoglobin A1c 10/27/2017 Glycohemoglobin (A1c) 5.8 % 4.2-6.3 25, 34 eAG 120 mg/dL 25 TSH Reflex FT4 And/Or FT3 10/27/2017 Thyroid Stim Hormone 2.30 uIU/mL 0.30-4.20 25 Reflex add FT3? Y 25 Reflex add FT4? Y 25 Homocyst(E)Ine, P/S 10/27/2017 Homocyst(e)ine, P/S 15.9 umol/L High 0.0- 15.0 25, 35 Ua RFX Micro & 10/27/2017 Urine Color YELLOW Yellow 25 Culture II Urine Clarity CLEAR Clear 25 Urine Glucose - Dipstick NEGATIVE mg/dL Negative 25 Urine Bilirubin - Dipstick NEGATIVE Negative 25 Urine Ketone NEGATIVE mg/dL Negative 25 Urine Specific [place] 1.020 1.010-1.030 25 Urine Blood NEGATIVE Negative 25 Urine PH 6.0 Low 6.5-7.5 25 Urine Protein - Dipstick NEGATIVE mg/dL Negative 25 Urine Urobilinogen - Dipstick 0.2 E.U./dL 0.2-1.0 25 Urine Nitrite - Dipstick NEGATIVE Negative 25 Urine Leuk Esterase NEGATIVE Negative 25 Source: URINE, CLEAN CAT <SEE NOTE> 25, 36 Comprehensive Metabolic Panel 10/27/2017 Glucose 110 mg/dL High 74-106 25 BUN 14 mg/dL 7-18 25 Creatinine 1.0 mg/dL 0.6-1.3 25 Glom Filtration Rate, Estimate >60 mL/min >60 25 If >60 mL/min >60 25, 37 BUN/Creat 14.0 ratio 25 Sodium 139 mmol/L [...] Lymph % 17.1 % Low 20.0-42.0 25 [place] % 7.9 % 0.0-10.0 25 Eo% 3.6 % 0.0-6.6 25 Bas% 0.8 % 0.0-1.1 25 Neut# 3.50 K/uL 1.8-7.0 25 Lymph # 0.85 K/uL Low 1.0-4.0 25 [place] # 0.39 K/uL 0.0-0.8 25 Eos # 0.18 K/uL 0.0-0.5 25 Baso # 0.04 K/uL 0.0-0.1 25 1 R59.9 2 THERAPEUTIC INR RANGE: 2.0 - 3.0 DVT, Pulmonary embolus, prophylaxis against venous thrombosis or systemic embolization in high risk patients. 2.5 - 3.5 Mechanical heart valves 3 Normal values apply only to males and to non females. These results are not interpretable for females. Asim ECLIA methodology. Values obtained with different assay methods or kits cannot be used interchangeably. Results cannot be interpreted as absolute evidence of the presence or absence of malignant disease. 4 Asim ECLIA methodology 5 Negative <5 Equivocal 5 - 9 Positive >9 6 Note: Persistent reduction for 3 months or more in an eGFR <60 mL/min/1.73 m2 defines CKD. Patients with eGFR values >/=60 mL/min/1.73 m2 may also have CKD if evidence of persistent proteinuria is present. The original MDRD equation for estimated GFR is not valid for patients less than 18 years of age. Additional information may be found at www.kdoqi.org. 7 Negative <1:80 Borderline 1:80 Positive >1:80 8 A positive SOLEDAD result may occur in healthy individuals (low titer) or be associated with a variety of diseases. See interpretation chart which is not all inclusive: Pattern Antigen Detected Suggested Disease Association Homogeneous DNA(ds,ss), SLE - High titers Nucleosomes, Histones Drug-induced SLE Speckled Sm, PHYSICAL THERAPY ASST, SCL-70, SLE,MCTD,PSS (diffuse form), SS-A/SS-B Sjogrens Nucleolar SCL-70, PM-1/SCL High titers Scleroderma, PM/DM Centromere Centromere PSS (limited form) w/Crest syndrome variable Nuclear Dot [id number] Primary Biliary Cirrhosis Nuclear GP210, Primary Biliary Cirrhosis Membrane jazmine A,B,C 9 Negative <0.91 Equivocal 0.91 - 1.09 Positive >1.09 10 Negative <0.80 Equivocal 0.80 - 1.19 Positive >1.19 IgM levels may peak at 3-6 weeks post infection, then gradually decline. Performed at: RN - [address] [id number] Executive Marketing Assistant: Nydia Skinner MD, Phone: [phone] 11 Method: Sediplast Modified [place] 12 R21 Z79.899 13 Note: Persistent reduction [...] Z79.899 R73.09 M10.9 E55.9 16 Performed at: [facility] [id number] Executive Marketing Assistant: Nydia Skinner MD, Phone: [phone] 17 Note: Persistent reduction for 3 months [...] for more aggressive treatment of glycemia. The [place] Diabetes Association recommends that a primary goal of therapy should be a HbA1c of <7% and that physicians should re-evaluate the treatment regimen in patients with HbA1c values consistently >8%. 19 Vitamin D deficiency has been defined by the Ellis of Medicine and an Endocrine Society practice guideline as a level of serum 25-OH vitamin D less than 20 ng/mL (1,2). The Endocrine Society went on to further define vitamin D insufficiency as a level between 21 and 29 ng/mL (2). 1. IOM (Ellis of Medicine). 2010. Dietary reference intakes for calcium and D. [place]: The National Academies Press. 2. Ricky MF, Gulshan CALDERON, Pako FERNANDEZ, et al. Evaluation, treatment, and prevention of vitamin D deficiency: an Endocrine Society clinical practice guideline. JCEM. 2010; 96(7):1911-30. Performed at: [address] [id number] Executive Marketing Assistant: Nydia Skinner MD, Phone: [phone] 20 Z12.11 21 Method: Alexandra Perla Hemoccult Card 22 Method: Alexandra [place] Hemoccult Card 23 Z13.21,M25.532,Z13.220 24 Method: Alexandra [place] Hemoccult Card 25 I10,Z79.899,F33.42,R73.09,M10.9,Z12.5,Z12.11, 26 No lupus anticoagulant was detected. 27 Negative <0.91 Equivocal 0.91 - 1.09 Positive >1.09 28 Negative <0.80 Equivocal 0.80 - 1.19 Positive >1.19 IgM levels may peak at 3-6 weeks post infection, then gradually decline. Performed at: [address] [id number] Executive Marketing Assistant: Pablo Bedolla MD, Phone: [phone] Performed at: [address] [id number] Executive Marketing Assistant: Nydia Skinner MD, Phone: [phone] 29 Method: Sediplast Modified Westergren 30 Vitamin D deficiency has been defined by the Ellis of Medicine and an Endocrine Society practice guideline as a level of serum 25-OH vitamin D less than 20 ng/mL (1,2). The Endocrine Society went on to further define vitamin D insufficiency as a level between 21 and 29 ng/mL (2). 1. IOM (Ellis of Medicine). 2010. Dietary reference intakes for calcium and D. [place]: The National Academies Press. 2. Ricky MF, Gulshan [place], Pako FERNANDEZ, et al. Evaluation, treatment, and prevention of vitamin D deficiency: an Endocrine Society clinical practice guideline. JCEM. 2010; 96(7):1911-30. Performed at: [address] [id number] Executive Marketing Assistant: Nydia Skinner MD, Phone: [phone] 31 Reference Guidelines*: Normal: ............. < 150 mg/dL Borderline High: .... 150-199 mg/dL High: ............... 200-499 mg/dL Very High: .......... > 500 mg/dL * Source: National Cholesterol Education Program (NCEP) 32 Reference Guidelines*: Low HDL: ..... < 40 mg/dL Normal: ..... 40-60 mg/dL Desirable: ... > 60 mg/dL *The National Cholesterol Education Program(NCEP) 33 THIS ASSAY IS NOT INTENDED A CANCER SCREENING TEST The concentration of PSA in a given specimen, determined with assays from different manufacturers, can vary due to differences in assay methods and reagent specificity. Values obtained from different assay methods cannot be used interchangeably. Method: HomeZada [place] Chemiluminescent immunoassay. 34 Elevated levels of HbA1c suggest the need for more aggressive treatment of glycemia. The [place] Diabetes Association recommends that a primary goal of therapy should be a HbA1c of <7% and that physicians should re-evaluate the treatment regimen in patients with HbA1c values consistently >8%. 35 Performed at: RN - [facility] [address] [id number] Executive Marketing Assistant: Nydia Skinner MD, Phone: [phone] URINE, CLEAN CATCH 37 Note: Persistent reduction for 3 months or more in an eGFR <60 mL/min/1.73 m2 defines CKD. Patients with eGFR values >/=60 mL/min/1.73 m2 may also have CKD if evidence of persistent proteinuria is present. The original MDRD equation for estimated GFR is not valid for patients less than 18 years of age. Additional information may be found at www.kdoqi.org. Procedures Date CPT Code Description Status 11/16/2017 Colonoscopy Completed Encounters Type Date Location Provider CPT E/M Dx Office Visit 08/05/2018 9:30a [place] [address] R59.9 D64.9 M05.60 Office Visit 07/30/2018 11:00a [place] [address] R59.9 D64.9 M05.60 Office Visit 07/21/2018 10:00a Primary Care Office Elisa Lobo M.D. 32728 R59.9 Z79.899 E72.10 R73.09 M06.9 I10 Office Visit 06/16/2018 1:45p Primary Care Office Mulu Pineda, 13234 R21 PA Office Visit 06/14/2018 3:40p Primary Care Office Elisa Lobo M.D. 87346 M79.672 M79.671 R59.9 E55.9 M10.9 Z79.899 I10 M06.9 Office Visit 02/05/2018 9:20a Primary Care Office Elisa Lobo M.D. 78285 E55.9 M10.9 Z79.899 E72.10 I10 R60.9 M79.671 M79.672 M06.9 Office Visit 11/06/2017 1:00p Primary Care Office Elisa Lobo M.D. 57820 M10.9 R73.09 F33.42 Z79.899 I10 E72.10 E55.9 M06.9 M79.641 Office Visit 09/04/2017 11:00a Primary Care Office Elisa Lobo M.D. 45511 M10.9 R73.09 F33.42 Z79.899 I10 M25.532 Office Visit 01/13/2017 10:00a Primary Care Office Elisa Lobo M.D. 37283 Z00.01 R60.9 I10 M06.9 Z79.899 F33.42 R73.09 M10.9 Z23 Office Visit 07/26/2008 2:00p [place] [address] 840.8 Sandy Uribe, Plan of Care Future Appointment(s):08/17/2018 9:30 am - Kenan Lopez DO at Oncology [id number]/22/2018 11:20 am - Elisa Lobo M.D. at Primary Care Office
[2018-08-30 09:55] VITALS: BP 144/95
--- NOTE | 2018-08-30 10:57 | UC ---
Skin Complaint HPI - HPI Summary HPI Summary: 57 y/o male presents to the urgent care c/o an infected pimple in his chin s/p shaving yesterday. Pt reports pimple was draining a yellowish discharge and this morning when he woke up there was redness and mild swelling around it. Pain at touch is 2/10. Pt denies fever, SOB, chest pain, abdominal pain, N/V/D. Hx of MRSA. - History of Current Complaint Chief Complaint: UCSkin Time Seen by Provider: 08/30/18 10:57 Stated Complaint: SKIN CONCERN - CHIN Hx Obtained From: Patient Onset/Duration: Gradual Onset, Lasting Days - 1 day, Still Present, Worse Since - today Skin Exposure Onset/Duration: Days Ago - 1 day Timing: Constant Onset Severity: Mild Current Severity: Moderate Pain Intensity: 4 - at touch Pain Scale Used: 0-10 Numeric Location: Discrete - chin Character: Swelling, Redness, Painful Aggravating Factor(s): Touch Alleviating Factor(s): Heat - warm compresses Associated Signs & Symptoms: Positive: Chills, Rash - on chin w/ yellowish drainage, Drainage - yellowish, Tenderness Related History: Other: - shaving - Allergy/Home Medications Allergies/Adverse Reactions: Allergies Allergy/AdvReac Type Severity Reaction Status Date / Time No Known Allergies Allergy Verified 08/30/18 09:47 Home Medications: Home Medications Amlodipine Besylate [Norvasc 5 mg tab] 1 tab PO DAILY 08/30/18 [History Confirmed 08/30/18] Cholecalciferol TAB* [Vitamin D TAB*] 500 unit PO DAILY 08/30/18 [History Confirmed 08/30/18] Cyanocobalamin TAB* [Vitamin B12 TAB*] 300 mcg PO DAILY 08/30/18 [History Confirmed 08/30/18] Enalapril TAB* [Vasotec TAB*] 20 mg PO DAILY 08/30/18 [History Confirmed ] FLUoxetine* [Prozac*] 20 mg PO DAILY 08/30/18 [History Confirmed 08/30/18] Folic Acid TAB* [Folvite TAB*] 1 mg PO DAILY 08/30/18 [History Confirmed ] Indomethacin CAP* [Indocin CAP*] 25 mg PO TID PRN 08/30/18 [History Confirmed ] predniSONE TAB* [Deltasone TAB*] 5 mg PO BID 08/30/18 [History Confirmed ] Review of Systems Constitutional: Fatigue Skin: Other - infected pimple in the chin w/ red rash around and painful Eyes: Negative ENT: Negative Respiratory: Negative Cardiovascular: Negative Gastrointestinal: Negative Genitourinary: Negative Motor: Negative Neurovascular: Negative Musculoskeletal: Negative Neurological: Negative Psychological: Negative Is Patient Immunocompromised?: No All Other Systems Reviewed And Are Negative: Yes PMH/Surg Hx/FS Hx/Imm Hx Previously Healthy: Yes Other Endocrine History: RA Cardiovascular History: Hypertension - Surgical History Surgical History: Yes Surgery Procedure, Year, and Place: nasal surgery 1997 - Family History Known Family History: Positive: Cardiac Disease Family History: Lupus - Social History Occupation: Employed Full-time Lives: With Family Alcohol Use: Daily Alcohol Amount: 1 drink Substance Use Type: None Smoking Status (MU): Never Smoked Tobacco Physical Exam - Summary Physical Exam Summary: Vital Signs Reviewed: Yes General: well developed, well nourished male sitting in the examining table w/o any apparent distress. Eyes: Positive: Conjunctiva Clear - PERRLA, EOMI ENT: Positive: Normal ENT inspection, Hearing grossly normal, Pharynx normal, TMs normal Neck: Positive: Supple, Nontender, No Lymphadenopathy Respiratory: Positive: Chest nontender, Lungs clear, Normal breath sounds Cardiovascular: Positive: RRR, No Murmur, Pulses Normal Abdomen Description: Positive: Nontender, No Organomegaly, Soft. Negative: CVA Tenderness (R), CVA Tenderness (L) Bowel Sounds: Positive: Present Musculoskeletal: Positive: Strength Intact, ROM Intact, No Edema Neurological Exam: Normal Psychological Exam: Normal Skin: Positive: rashes - mid chin w/ erythematous patch w/ indistinct borders, warm to touch, swelling and tender to palpation w/ a central crusting w/ mild yellowish drainage about 1.0cm x 1.0cm in size Triage Information Reviewed: Yes Vital Signs: Initial Vital Signs Temp 98.1 F 08/30/18 09:50 Pulse 71 08/30/18 09:50 Resp 17 08/30/18 09:50 BP 144/95 08/30/18 09:50 Pulse Ox 99 08/30/18 09:50 Course/Dx - Course Course Of Treatment: 57 y/o male presents to the urgent care c/o an infected pimple in his chin s/p shaving yesterday. Pt reports pimple was draining a yellowish discharge and this morning when he woke up there was redness and mild swelling around it. Pain at touch is 2/10. Pt denies fever, SOB, chest pain, abdominal pain, N/V/D. Hx of MRSA. Hx obtained. Pt w/ cellulitis around chin s/ p infected pimple on examination. Pt Rx Keflex PO, and Bactroban topical cream. Pt Advised to continue applying warm compresses and if rash doubles in size and if he develops fever to go to the ER for further treatment. Pt BP today elevated w/o Hx of HTN. Pt advised to decrease salt in diet and monitor BP at home if it continues to be elevated to f/u with PCP for further management. Pt understood and agreed w/ plan of care. - Differential Diagnoses - Skin Complaint Differential Diagnoses: Abscess, Cellulitis, Contact Dermatitis, MRSA, Tinea - Diagnoses Provider Diagnoses: 1- Cellulitis on the chin s/p infected pimple. 2- Uncontrolled HTN Discharge - Sign-Out/Discharge Documenting (check all that apply): Patient Departure - D/c home All imaging exams completed and their final reports reviewed: No Studies - Discharge Plan Condition: Stable Disposition: HOME Prescriptions: Cephalexin CAP* [Keflex CAP*] 500 mg PO QID #28 cap Mupirocin 2% OINT* [Bactroban 2 % Oint*] 1 applic TOPICAL BID #1 tube Patient Education Materials: Cellulitis (ED), Low-Sodium Diet (ED) Forms: *Work Release Referrals: Elisa Lobo MD [Primary Care Provider] - 2 Days Additional Instructions: 1-Please take full course of Antibiotic. 2- If redness and swelling doubles in size after 48 hrs of taking antibiotic and fever develops please go to the ER immediately. 3- keep wound clean and dry. kepp applying warm compresses and apply the Bactroban topical cream as directed 4-Please F/u with your PCP in 2-3 days if not improvement of symptoms for further evaluation and treatment. 5-Your BP is elevated today. please decrease salt in your diet, monitor BP and if it continues to be elevated please f/u with your PCP for further management - Billing Disposition and Condition Condition: STABLE Disposition: Home - Attestation Statements Provider Attestation: Per institutional requirements, I have reviewed the chart, however, I was not consulted specifically or made aware of this patient by the midlevel provider. I did not personally evaluate, interact with , or disposition this patient.
== END 2018-08-30 11:25 | disposition home or self-care (01) ==
LOC: UCCORT 09:13
DX: L03.90 Cellulitis, unspecified (principal); I10 Essential (primary) hypertension
CPT/HCPCS: 99202; G0463